=== PATIENT | female | born 2000 | race Caucasian/White ===

== ENCOUNTER 2022-09-09 19:13 | Emergency (ER) | payer OTHER, SELFPAY ==
[2022-09-09 19:22] VITALS: BP 138/97; PULSE 130; RESP 16; TEMP 37.2; O2SAT 98
[2022-09-09 19:27] VITALS: BP 138/97; PULSE 130; RESP 16; TEMP 37.2; O2SAT 98
--- NOTE | 2022-09-09 20:23 | ED.NAVMDI ---
HPI - Nausea/Vomiting/Diarrhea General Chief complaint: Nausea/Vomiting/Diarrhea Stated complaint: Vomiting Time Seen by Provider: 09/09/22 20:23 Source: patient and RN notes reviewed Mode of arrival: ambulatory Limitations: no limitations History of Present Illness HPI Narrative: [age] of presenting for complaint of vomiting last night. She states it occurred after taking multiple hits of weed. States she became lightheaded, attempted to sleep but was unable to due to being high. Endorses sinus pressure congestion, headache, and mild cough. She currently denies abdominal pain, nausea, vomiting or diarrhea. She has been able to tolerate solid food today. She is also requesting a work note. Related Data Home Medications Medication Instructions Recorded Confirmed No Home Medications 09/09/22 09/09/22 Allergies Allergy/AdvReac Type Severity Reaction Status Date / Time No Known Allergies Allergy Verified 09/09/22 19:27 Review of Systems Review of Systems: ROS per HPI Exam Narrative: GENERAL: well-appearing, EYES: PERRLA, conjunctivae clear ENT: Mucous membranes moist. TMs pearly mejia with dull light reflex bilaterally; no tragal tenderness. Oropharynx normal without lesions or exudate, no drooling, no hoarseness, no trismus, uvula midline. CHEST: Clear to auscultation, breath sounds equal. No wheezing, rhonchi, rales, or stridor. No respiratory distress, speaks in full sentences. HEART: Regular rate and rhythm. No murmur heard. ABD: soft, nontender SKIN: Warm, dry, no rash. NEURO: Alert and oriented x3. PSYCH:anxious Course Course Emergency Course: Patient is aware of diagnosis, understands and agrees to treatment plan. Anticipatory guidance given. Patient agrees to follow-up as directed and is aware of reasons to seek care at the emergency department. Portions of this record may have been created with voice recognition software Level of Care: Express Care Visit Vital Signs Vital signs: Vital Signs Temperature 98.9 F 09/09/22 19:22 Pulse Rate 130 H 09/09/22 19:22 Respiratory Rate 16 09/09/22 19:22 Blood Pressure 138/97 H 09/09/22 19:22 Pulse Oximetry 98 09/09/22 19:22 Oxygen Delivery Room Air 09/09/22 19:22 Temperature 98.9 F 09/09/22 19:27 Pulse Rate 130 H 09/09/22 19:27 Respiratory Rate 16 09/09/22 19:27 Blood Pressure 138/97 H 09/09/22 19:27 Pulse Oximetry 98 09/09/22 19:27 Oxygen Delivery Room Air 09/09/22 19:27 reviewed MDM - Nausea/Vomiting/Diarrhea MDM Narrative Medical decision making narrative: Advised supportive measures and signs/symptoms to go to the ER. Pt is appropriate for outpt treatment and f/u. Differential Diagnosis Differential diagnosis: Likely food poisoning, gastroenteritis and other (viral infection) Discharge Plan Discharge Clinical Impression: Viral infection Patient Disposition: Home, Self-Care Condition: Stable Instructions: Acute Nausea and Vomiting (ED) Additional Instructions: Stay hydrated. Take small sips of fluid containing electrolytes frequently. Clear liquids (broth, jello, tea, sprite, pedialyte) [place] foods (bananas, rice, applesauce, toast, crackers) Avoid fatty, greasy, fried or spicy food. Avoid triggers. You should go to the hospital if you experience persistent nausea and vomiting that does not resolve and does not allow you to tolerate any food or fluids, fevers, increasing abdominal pain, persistent diarrhea, dizziness, fainting, or for any other concerns. Prescriptions: No Action No Home Medications Follow-up/Referrals: PHYSICIAN,DIRECTOR OF [facility] [Primary Care Provider] - Stand Alone Forms: Work/School Release IP Time of Disposition: 20:30
== END 2022-09-09 20:34 | disposition home or self-care (01) ==
PROVIDERS: Emergency Provider Nurse Practitioner Family
DX: B34.9 Viral infection, unspecified (principal)
CPT/HCPCS: 99211; G0463

== ENCOUNTER 2023-03-06 12:04 | Emergency (ER) | payer OTHER, SELFPAY ==
[2023-03-06 12:12] VITALS: BP 145/85; PULSE 92; RESP 16; TEMP 37.1; O2SAT 99
--- NOTE | 2023-03-06 12:27 | ED.URI ---
HPI - URI/Sore Throat General Chief Complaint: Upper Respiratory Infection Stated Complaint: Sore Throat Source: patient and RN notes reviewed Limitations: no limitations History of Present Illness HPI Narrative: patient is a 22-year-old female who presents to the [facility] with complaints sore throat upon waking this morning. Patient states that she has also noticed an infrequent nonproductive cough starting around midnight. She denies congestion. Denies fevers. Denies chest pain or shortness of breath. Related Data Home Medications Medication Instructions Recorded Confirmed No Home Medications 09/09/22 09/09/22 Allergies Allergy/AdvReac Type Severity Reaction Status Date / Time No Known Allergies Allergy Verified 09/09/22 19:27 Review of Systems Review of Systems: CONSTITUTIONAL: Denies fever, chills, or sweats. EYES: Denies visual changes, redness, or discharge. ENT: Reports sore throat. CARDIOVASCULAR: Denies chest pain, palpitations, or edema. RESPIRATORY: Reports cough but denies dyspnea. GASTROINTESTINAL: Denies abdominal pain, nausea, vomiting, or diarrhea. GENITOURINARY: Denies dysuria or hematuria. SKIN: Denies rash or itching. MUSCULOSKELETAL: Denies back pain, joint pain, or myalgia. NEUROLOGIC: Denies headache, numbness, or weakness. Pertinent positives per HPI. PMFSH Comments At the time of my signature, I reviewed and agree with the nursing past medical, surgical, social, and family history. There is no relevant family history pertinent to the patient complaint. Exam Narrative: GENERAL: This is a well-nourished, well-developed patient, in no apparent distress. HEAD: normocephalic, atraumatic. EYES: Sclera clear/white. Vision is grossly intact. EARS: External ears normal, auditory canals clear and without drainage, TMs normal without perforation. Hearing grossly intact. NOSE: External nose normal with no obvious nasal discharge, nares without redness, no rhinorrhea. THROAT: Mucous membranes moist, oropharyngeal erythema without exudate. NECK: Neck supple, non-tender without lymphadenopathy, masses or thyromegaly. CARDIOVASCULAR: Regular rate and rhythm without murmurs, gallops, or rubs. RESPIRATORY: Clear to auscultation. Breath sounds equal bilaterally. No wheezes, rales, or rhonchi. GASTROINTESTINAL: Abdomen soft, non-tender, nondistended. Bowel sounds are active. No hepato-splenomegaly, or palpable masses. No guarding. SKIN: warm, intact with no suspicious lesions or rash, good texture and turgor. NEURO: awake, alert, and oriented to person, place and time. There were no obvious focal neurologic abnormalities. Course Course Level of Care: Express Care Visit Vital Signs Vital signs: Vital Signs Temperature 98.7 F 03/06/23 12:12 Pulse Rate 92 03/06/23 12:12 Respiratory Rate 16 03/06/23 12:12 Blood Pressure 145/85 H 03/06/23 12:12 Pulse Oximetry 99 03/06/23 12:12 Oxygen Delivery Room Air 03/06/23 12:12 Temperature 98.7 F 03/06/23 12:12 Pulse Rate 92 03/06/23 12:12 Respiratory Rate 16 03/06/23 12:12 Blood Pressure 145/85 H 03/06/23 12:12 Pulse Oximetry 99 03/06/23 12:12 Oxygen Delivery Room Air 03/06/23 12:12 reviewed MDM - URI/Sore Throat MDM Narrative Medical decision making narrative: Rapid strep is negative in the office; however we will send to the lab for confirmation; there is a small percentage chance that it can come back positive; if it is, we will call you in 2-3days; and your prescription will be call in to your pharmacy. However, there is NO indication for antibiotic at this time. -Increase your fluids and Vitamin C. -Oral rinses such as: Salt water gargles and/or may use topical anesthetic (eg. Chloraseptic spray) or lozenges to relieve dryness or throat pain. -Take tylenol and ibuprofen as needed for pain and fever as directed. -Frequent hand washing or hand supervisor pleating is one of the best ways to prevent spre
== END 2023-03-06 12:30 | disposition home or self-care (01) ==
PROVIDERS: Emergency Provider Nurse Practitioner
DX: J02.9 Acute pharyngitis, unspecified (principal)
CPT/HCPCS: 87081; 87880; 99213; G0463

== ENCOUNTER 2023-04-11 16:59 | Emergency (ER) | payer OTHER, SELFPAY ==
[2023-04-11 17:03] VITALS: BP 145/88; PULSE 86; RESP 18; TEMP 36.5; O2SAT 99
--- NOTE | 2023-04-11 17:56 | ED.GENADULT ---
HPI - General Adult General Chief complaint: Nausea/Vomiting/Diarrhea Stated complaint: Vomiting Source: patient Mode of arrival: ambulatory Limitations: no limitations History of Present Illness HPI narrative: Patient presents requesting a note to allow her to return to work tomorrow. She missed work today because she had an episode of vomiting. She denies any nausea at the present time. No fever, chills, abdominal pain, urinary symptoms, vaginal bleeding or discharge, constipation, diarrhea or other symptoms. She has a nexplanon. She is not aware of any new foods she consumed. She ate eggs prior to the time of symptom onset. Related Data Home Medications Medication Instructions Recorded Confirmed No Home Medications 09/09/22 09/09/22 Allergies Allergy/AdvReac Type Severity Reaction Status Date / Time No Known Allergies Allergy Verified 09/09/22 19:27 Review of Systems Review of Systems: CONSTITUTIONAL: Denies fever, chills, or sweats. EYES: Denies visual changes, redness, or discharge. ENT: Denies rhinorrhea, congestion, sore throat, or otalgia. CARDIOVASCULAR: Denies chest pain, palpitations, or edema. RESPIRATORY: Denies cough or dyspnea. GASTROINTESTINAL:Reports nausea earlier which has since resolved. Reports one episode of vomiting. Denies abdominal pain or diarrhea. GENITOURINARY: Denies dysuria or hematuria. SKIN: Denies rash or itching. MUSCULOSKELETAL: Denies back pain, joint pain, or myalgia. NEUROLOGIC: Denies headache, numbness, dizziness, or weakness. PSYCHIATRIC: Denies anxiety or depression. PMFSH Past Medical History Medical History No pertinent past medical history Surgical History Surgical History No pertinent past surgical history Family History Family History Father Family history non-contributory Social History Social History Living arrangements: with family Gender identity (if verbalized by the patient): Female Spiritual care concerns: No Exam Narrative: GENERAL: Well-appearing, well-nourished, and in no acute distress. HEAD: Normocephalic, atraumatic. EYES: PERRLA and EOMI. ENT: Nares clear, no rhinorrhea or epistaxis. Mucous membranes moist. Oropharynx without tonsillar hypertrophy exudate or other lesions. Bilateral TMs pearly mejia nonbulging NECK: Supple. No adenopathy or masses. No carotid bruits or JVD CHEST: Clear to auscultation. No respiratory distress. No wheezes rales or rhonchi HEART: Regular rate and rhythm. No murmur heard. Normal peripheral pulses. ABDOMEN: Soft, nontender, nondistended, normal active bowel sounds. EXTREMITIES: Normal range of motion. No edema. SKIN: Warm, dry, no rash. NEURO: No focal deficits. Alert and oriented x3. PSYCH: Normal mood and affect. Course Course Emergency Course: This is a 22-year-old female who presented with request for a work note to allow her return tomorrow. She had an episode of emesis earlier today but denies any nausea or any other symptoms at the present time. She should follow-up with her primary provider this coming week. Go to the ER for worsening symptoms. Patient in agreement with plan care Level of Care: Express Care Visit Vital Signs Vital signs: Vital Signs Temperature 36.5 C 04/11/23 17:03 Pulse Rate 86 04/11/23 17:03 Respiratory Rate 18 04/11/23 17:03 Blood Pressure 145/88 H 04/11/23 17:03 Pulse Oximetry 99 04/11/23 17:03 Oxygen Delivery Room Air 04/11/23 17:03 Temperature 36.5 C 04/11/23 17:03 Pulse Rate 86 04/11/23 17:03 Respiratory Rate 18 04/11/23 17:03 Blood Pressure 145/88 H 04/11/23 17:03 Pulse Oximetry 99 04/11/23 17:03 Oxygen Delivery Room Air 04/11/23 17:03 Afsaneh Fox
== END 2023-04-11 17:59 | disposition home or self-care (01) ==
PROVIDERS: Emergency Provider Nurse Practitioner
DX: Z02.79 Encounter for issue of other medical certificate (principal)
CPT/HCPCS: 99211; G0463

== ENCOUNTER 2023-05-28 16:53 | Emergency (ER) | payer OTHER, SELFPAY ==
[2023-05-28 16:57] VITALS: BP 122/78; PULSE 89; RESP 16; TEMP 36.4; O2SAT 98
--- NOTE | 2023-05-28 17:07 | ED.NAVMDI ---
HPI - Nausea/Vomiting/Diarrhea General Chief complaint: Nausea/Vomiting/Diarrhea Stated complaint: Dizziness/Nausea Source: patient and RN notes reviewed History of Present Illness HPI Narrative: 22 yo F presents to urgent care with omplaints of nausea yesterday. Pt states she had some diarrhea as well. Pt reports eating an edible on Thursday and she thinks this could be the culprit to her symptoms yesterday. Pt stats she feels better today but her [id number] told her she looked pale today and to be evaluated. Pt also stating she needs a note to return to work. Denies any vomiting, chest pain, SOB, or abdominal pain. Pt reports feeling lightheaded yesterday. Related Data Home Medications Medication Instructions Recorded Confirmed etonogestrel 68 mg subdermal 1 implant subdermal ONCE 05/28/23 05/28/23 implant (Nexplanon) Allergies Allergy/AdvReac Type Severity Reaction Status Date / Time No Known Allergies Allergy Verified 05/28/23 17:10 Review of Systems Review of Systems: Pertinent positives and pertinent negatives per HPI. [facility] Past Medical History Medical History (Updated 05/28/23 @ 17:14 by Vanessa Cutler, LITHOGRAPH [employer]ESS [employer]PERATOR [employer]) No pertinent past medical history Surgical History Surgical History No pertinent past surgical history Family History Family History Father Family history non-contributory Social History Social History Living arrangements: with family Gender identity (if verbalized by the patient): Female Spiritual care concerns: No Comments At the time of my signature, I reviewed and agree with the nursing past medical, surgical, social, and family history. There is no relevant family history pertinent to the patient complaint. Exam Narrative: GENERAL: This is a well-nourished, well-developed patient, in no apparent distress. HEAD: normocephalic, atraumatic. EYES: Sclera clear/white. Vision is grossly intact. EARS: External ears normal, auditory canals clear and without drainage. Hearing grossly intact. NOSE: External nose normal with no obvious nasal discharge, nares without redness, no rhinorrhea. CARDIOVASCULAR: Regular rate and rhythm without murmurs, gallops, or rubs. RESPIRATORY: No respiratory distress GASTROINTESTINAL: Abdomen soft, non-tender, nondistended. Bowel sounds are active. No hepato-splenomegaly, or palpable masses. No guarding. SKIN: warm, intact with no suspicious lesions or rash, good texture and turgor. NEURO: awake, alert, and oriented to person, place and time. There were no obvious focal neurologic abnormalities. Course Course Level of Care: Express Care Visit Vital Signs Vital signs: Vital Signs Temperature 97.6 F 05/28/23 16:57 Pulse Rate 89 05/28/23 16:57 Respiratory Rate 16 05/28/23 16:57 Blood Pressure 122/78 05/28/23 16:57 Pulse Oximetry 98 05/28/23 16:57 Oxygen Delivery Room Air 05/28/23 16:57 Temperature 97.6 F 05/28/23 17:10 Pulse Rate 89 05/28/23 17:10 Respiratory Rate 16 05/28/23 17:10 Blood Pressure 122/78 05/28/23 17:10 Pulse Oximetry 98 05/28/23 17:10 Oxygen Delivery Room Air 05/28/23 17:10 Reviewed MDM - Nausea/Vomiting/Diarrhea MDM Narrative Medical decision making narrative: If you would like to eat food, you should follow the BRAT diet (bananas, rice, applesauce, and toast, or things of the like). If you develop any new or worsening symptoms, you should go to the emergency dept without hesitation. Follow up with your religion instructor in 2-5 days. Differential Diagnosis Differential diagnosis: Likely gastroenteritis, dehydration and other (needs work note) Critical Care Time Critical Care Time Critical Care Time: No Discharge Plan Discharge Clinical Impression: Return to work evaluation
[2023-05-28 17:10] VITALS: BP 122/78; PULSE 89; RESP 16; TEMP 36.4; O2SAT 98
== END 2023-05-28 17:21 | disposition home or self-care (01) ==
PROVIDERS: Emergency Provider Nurse Practitioner Family
DX: Z02.79 Encounter for issue of other medical certificate (principal)
CPT/HCPCS: 99211; G0463

== ENCOUNTER 2023-06-18 12:52 | Emergency (ER) | payer OTHER, SELFPAY ==
[2023-06-18 13:00] VITALS: BP 138/92; PULSE 83; RESP 20; TEMP 36.9; O2SAT 99
--- NOTE | 2023-06-18 13:40 | ED.GENADULT ---
HPI - General Adult General Chief complaint: Unspecified Stated complaint: Pain chest/collarbone Time Seen by Provider: 06/18/23 13:41 Source: patient Mode of arrival: ambulatory Limitations: no limitations History of Present Illness HPI narrative: 22-year-old female presented for complaint of left clavicle pain for 2 days. She denies known injury. She states she took a pain reliever but it caused indigestion and did not provide significant relief in pain. Denies decreased ROM to upper extremities. Denies numbness, tingling or weakness of the arms, however she endorses sleeping with the arm over head and it will cause the arm to 'fall asleep sometimes.' endorses a history of left clavicle fracture x2 as a child. Related Data Home Medications Medication Instructions Recorded Confirmed etonogestrel 68 mg subdermal 1 implant subdermal ONCE 05/28/23 06/18/23 implant (Nexplanon) Allergies Allergy/AdvReac Type Severity Reaction Status Date / Time No Known Allergies Allergy Verified 06/18/23 13:14 Review of Systems Review of Systems: CONSTITUTIONAL: Denies body aches, fever, chills EYES: Denies visual changes ENT: Denies rhinorrhea, congestion CARDIOVASCULAR: Denies chest pain, palpitations, or edema. RESPIRATORY: Denies cough or dyspnea. GASTROINTESTINAL: Denies abdominal pain, nausea, vomiting, or diarrhea. SKIN: Denies rash, itching, or wounds. MUSCULOSKELETAL: reports left clavicle pain Denies back pain, joint pain, or myalgia. NEUROLOGIC: Denies headache, numbness, tingling, or weakness. PSYCH: Denies depression or anxiety. All systems reviewed & are unremarkable except as noted in HPI and below PMFSH Past Medical History Medical History No pertinent past medical history Surgical History Surgical History No pertinent past surgical history Family History Family History Father Family history non-contributory Social History Social History Living arrangements: with family Gender identity (if verbalized by the patient): Female Spiritual care concerns: No Comments At time of signature, I have reviewed and agree with nursing past medical, surgical, social and family history unless otherwise noted. Please see nursing chart for further information. There is no relevant family history pertinent to the presenting complaint Exam Narrative: GENERAL: Well-appearing, and in no acute distress. HEAD: Normocephalic, atraumatic. EYES: PERRLA, conjunctivae clear NECK: Supple. CHEST: Speaks in full sentences. No respiratory distress. HEART: Regular rate and rhythm. Normal and equal peripheral pulses. EXTREMITIES: Left mid clavicle tender to palpation. bilateral upper extremities have normal strength and sensation, normal range of motion but endorses mild clavicle pain with movement. No edema or ecchymosis, No open wounds,or obvious deformity; alignment normal, pulse palpable and equal bilaterally, skin warm, dry, pink. Capillary refill less than 3 seconds. SKIN: Warm, dry, no rash. NEURO: Alert and oriented x3. PSYCH: Normal mood and affect Course Course Emergency Course: Patient is aware of diagnosis, understands and agrees to treatment plan. Anticipatory guidance given. Patient agrees to follow-up as directed and is aware of reasons to seek care at the emergency department. Portions of this record may have been created with voice recognition software Level of Care: Express Care Visit Vital Signs Vital signs: Vital Signs Temperature 98.5 F 06/18/23 13:00 Pulse Rate 83 06/18/23 13:00 Respiratory Rate 20 06/18/23 13:00 Blood Pressure 138/92 H 06/18/23 13:00 Pulse Oximetry 99 06/18/23 13:00 Oxygen Delivery Room Air 06/18/23 13:00 [place]
== END 2023-06-18 13:55 | disposition home or self-care (01) ==
PROVIDERS: Emergency Provider Nurse Practitioner Family
DX: M25.512 Pain in left shoulder (principal)
CPT/HCPCS: 99212; G0463

== ENCOUNTER 2023-10-01 09:14 | Emergency (ER) | payer OTHER, SELFPAY ==
--- NOTE | 2023-10-01 09:16 | ED.SKABFB ---
HPI - Skin/Abscess/Foreign Bdy General Chief complaint: Skin/Abscess/Foreign Body Stated complaint: All over rash Time Seen by Provider: 10/01/23 09:16 Source: patient Mode of arrival: ambulatory Limitations: no limitations History of Present Illness HPI narrative: Patient is a 23-year-old female presents with rash all over body that started yesterday. Patient has been using Benadryl and cortisone cream with no relief. Has been taking cool showers. Denies any tongue or throat swelling. Denies any difficulty breathing. Related Data Home Medications Medication Instructions Recorded Confirmed etonogestrel 68 mg subdermal 1 implant subdermal ONCE 05/28/23 10/01/23 implant (Nexplanon) Allergies Allergy/AdvReac Type Severity Reaction Status Date / Time FLU SHOT Allergy Rash Uncoded 10/01/23 09:24 Review of Systems Review of Systems: All systems reviewed & are unremarkable except as noted in HPI and below Constitutional: Constitutional: Denies body ache(s), Denies chills, Denies fatigue, Denies fever(s), Denies headache(s), Denies malaise and Denies weakness Eyes: Eyes: Denies blurry vision, Denies irritation and Denies loss of vision ENT: Denies otalgia, Denies headache(s), Denies nasal discharge, Denies sinus pain and Denies sore throat Cardiovascular: Cardiovascular: Denies chest pain, Denies irregular heart rhythm and Denies dyspnea Respiratory: Respiratory: Denies dyspnea Gastrointestinal: Gastrointestinal: Denies abdominal pain, Denies melena, Denies hematochezia, Denies diarrhea, Denies nausea and Denies vomiting Musculoskeletal: Musculoskeletal: Denies back pain, Denies myalgias and Denies arthralgias Integumentary/Breasts: Skin/Breast: Reports pruritus and Reports rash Neurologic: Denies headache(s), Denies loss of vision and Denies weakness Psychiatric: Psychiatric: Reports no additional psychiatric complaints Endocrine: Endocrine: Denies fatigue PMFSH Past Medical History Medical History No pertinent past medical history Surgical History Surgical History No pertinent past surgical history Family History Family History Father Family history non-contributory Social History Social History Living arrangements: with family Gender identity (if verbalized by the patient): Female Spiritual care concerns: No Comments At time of signature, agree with nursing past medical, surgical, social and family history. There is no relevant family history pertinent to the presenting complaint. Exam Const: General: cooperative, healthy appearing, comfortable, no acute distress and well nourished Nutritional Appearance: well nourished Orientation/consciousness: patient oriented x3 Limitations: no limitations HENMT: Head: normal to inspection, normocephalic and atraumatic Ears: hearing grossly normal bilaterally and external ears normal Face/Nose/Sinus: Normal external nose present, normal facial exam and face symmetric Face and sinus: normal facial exam and face symmetric Mouth: Yes Normal oral and palatal mucosa present, Yes lip normal, Yes tongue normal, Yes oropharynx normal and Yes moist mucous membranes Teeth and gingiva: dentition normal Throat: abnormal tonsil bilateral erythema and hypertrophy 2+ and posterior oropharynx abnormal erythema Eyes: General: appearance normal, both eyes and all related structures Alignment and Position: alignment normal and position normal Periorbital: periorbital findings normal Eyelids: eyelids normal Pupils: Equal, round and reactive pupils present EOM: EOMs intact bilaterally Neck: Neck: normal visual inspection, full ROM and supple Chest: Chest palpation & inspection: normal inspection of the chest Resp: Effort & Inspection: no
[2023-10-01 09:19] VITALS: BP 139/84; PULSE 105; RESP 18; TEMP 36.9; O2SAT 100
== END 2023-10-01 09:57 | disposition home or self-care (01) ==
PROVIDERS: Emergency Provider Nurse Practitioner Family
DX: J02.0 Streptococcal pharyngitis (principal); T78.40XA Allergy, unspecified, initial encounter
CPT/HCPCS: 87880; 99213; G0463

== ENCOUNTER 2023-11-05 13:15 | Emergency (ER) | payer OTHER, SELFPAY ==
[2023-11-05 13:24] VITALS: BP 155/76; PULSE 83; RESP 22; TEMP 36.6; O2SAT 100
[2023-11-05] MEDS: ALBUTEROL SULFATE NEB 2.5 MG/3 ML INH INHALATION (13:43)
[2023-11-05] MEDS: methylPREDNISolone SOD SUCC 125 MG VIAL IM (13:43)
--- NOTE | 2023-11-05 13:45 | ED.SOB ---
HPI - SOB/Dyspnea General Chief Complaint: Upper Respiratory Infection Stated Complaint: Shortness of Breath/Left Flank Pain Source: patient Mode of arrival: ambulatory Limitations: no limitations History of Present Illness HPI Narrative: 23-year-old female presented for complaint of cough for about 1 month worsening shortness of breath and wheezing over the past week. She states she has been out of her rescue inhaler for several days. Endorses subjective fever and bilateral lower rib pain. Denies n/v/d. Related Data Home Medications Medication Instructions Recorded Confirmed etonogestrel 68 mg subdermal 1 implant subdermal ONCE 05/28/23 10/01/23 implant (Nexplanon) Allergies Allergy/AdvReac Type Severity Reaction Status Date / Time FLU SHOT Allergy Rash Uncoded 10/01/23 09:24 Review of Systems Review of Systems: CONSTITUTIONAL: Denies body aches, reports fever, sweats. EYES: Denies visual changes, redness, or discharge. ENT: Denies rhinorrhea, congestion, sore throat, or otalgia. CARDIOVASCULAR: Denies chest pain, palpitations, or edema. RESPIRATORY: Reports cough, sob, wheezing. GASTROINTESTINAL: Denies abdominal pain, nausea, vomiting, or diarrhea. SKIN: Denies rash, itching, or wounds. MUSCULOSKELETAL: Denies back pain, joint pain, or myalgia. NEUROLOGIC: Denies headache, numbness, tingling, or weakness. All systems reviewed & are unremarkable except as noted in HPI and below PMFSH Past Medical History Medical History No pertinent past medical history Surgical History Surgical History No pertinent past surgical history Family History Family History Father Family history non-contributory Social History Social History Living arrangements: with family Gender identity (if verbalized by the patient): Female Spiritual care concerns: No Comments At time of signature, I have reviewed and agree with nursing past medical, surgical, social and family history unless otherwise noted. Please see nursing chart for further information. There is no relevant family history pertinent to the presenting complaint Exam Narrative: GENERAL: Well-appearing, in no acute distress. EYES: EOMI. No redness or drainage. Conjunctivae normal. ENT: Mucous membranes pink and moist. No rhinorrhea. TMs normal bilaterally. Throat normal. Uvula midline. CHEST: No respiratory distress. Wheezing to all [place]. No cough. Speaks full sentences. HEART: Regular rate and rhythm. No murmur appreciated. ABDOMEN: Soft, nontender, nondistended, normal active bowel sounds. SKIN: Warm, dry, no rash. Capillary refill normal. Normal skin turgor. NEURO: Alert and oriented x3. Gait steady. PSYCH: Normal affect. Course Course Emergency Course: Patient is aware of diagnosis, understands and agrees to treatment plan. Anticipatory guidance given. Patient agrees to follow-up as directed and is aware of reasons to seek care at the emergency department. Portions of this record may have been created with voice recognition software Level of Care: Express Care Visit Vital Signs Vital signs: Vital Signs Temperature 98 F 11/05/23 13:24 Pulse Rate 83 11/05/23 13:24 Respiratory Rate 22 H 11/05/23 13:24 Blood Pressure 155/76 H 11/05/23 13:24 Pulse Oximetry 100 11/05/23 13:24 Oxygen Delivery Room Air 11/05/23 13:24 Temperature 98 F 11/05/23 13:24 Pulse Rate 83 11/05/23 13:24 Respiratory Rate 22 H 11/05/23 13:24 Blood Pressure 155/76 H 11/05/23 13:24 Pulse Oximetry 100 11/05/23 13:24 Oxygen Delivery Room Air 11/05/23 13:24 MDM - SOB/Dyspnea MDM Narrative Medical decision making narrative: O2 sat 100% RA. IM solumedrol given Reassessed after albuterol
== END 2023-11-05 14:15 | disposition home or self-care (01) ==
PROVIDERS: Emergency Provider Nurse Practitioner Family
DX: J40 Bronchitis, not specified as acute or chronic (principal)
CPT/HCPCS: 96372; 99213; G0463; J2930

== ENCOUNTER 2023-12-16 18:19 | Emergency (ER) | payer OTHER, SELFPAY ==
[2023-12-16 18:24] VITALS: BP 155/67; PULSE 102; RESP 20; TEMP 36.9; O2SAT 100
--- NOTE | 2023-12-16 18:48 | ED.EAR ---
HPI - Ear Problem General Chief complaint: Ear Stated complaint: ears Time Seen by Provider: 12/16/23 18:40 Source: patient, RN notes reviewed and old records reviewed Mode of arrival: ambulatory Limitations: no limitations History of Present Illness HPI Narrative: 23 year old female presents to [facility] accompanied by significant other with complaints of right ear pain since yesterday. Patient reports that her right ear is throabbing in pain, has not taken any OTC medication for her discomfort. MD Complaint: ear pain Location: right ear Duration: constant Severity: moderate Discharge from ear: Reports no Treatment prior to arrival: none Related Data Home Medications Medication Instructions Recorded Confirmed vits no.126-ferrous fum 1 tablet PO DAILY 12/16/23 12/16/23 28 mg iron-folic acid 800 mcg tablet (Classic ) Allergies Allergy/AdvReac Type Severity Reaction Status Date / Time Influenza Virus Vaccines Allergy Unknown Unknown Verified 12/16/23 18:36 Review of Systems Review of Systems: CONSTITUTIONAL: Denies malaise, chills, sweats, or fever. EYES: Denies visual changes, redness, or discharge. ENT: Reports rhinorrhea, congestion,no sinus pain, right otalgia and no sore throat. CARDIOVASCULAR: Denies chest pain, palpitations, or edema. RESPIRATORY: Reports cough.? Denies dyspnea. GASTROINTESTINAL: Denies abdominal pain, nausea, vomiting, diarrhea SKIN: Denies rash or itching. MUSCULOSKELETAL: Denies myalgia. NEUROLOGIC: Denies headache. All systems reviewed & are unremarkable except as noted in HPI and below PMFSH Past Medical History Medical History (Updated 12/18/23 @ 14:05 by Florinda Gabriel NP) Fracture, clavicle GERD (gastroesophageal reflux disease) Hypertension No pertinent past medical history Seasonal allergies Surgical History Surgical History No pertinent past surgical history Family History Family History Father Family history non-contributory Social History Social History Living arrangements: with family Gender identity (if verbalized by the patient): Female Spiritual care concerns: No Comments At time of signature, agree with nursing past medical, surgical, social and family history. There is no relevant family history pertinent to the presenting complaint Exam Narrative: GENERAL: Well-appearing, well-nourished, and in no acute distress. HEAD: Normocephalic EYES: PERRLA, conjunctivae clear ENT: Nares clear, turbinates edematous and erythematous, clear discharge. Mucous membranes moist.Right TM red and bulging, Left TM pearly mejia with dull light reflex; no tragal tenderness. Oropharynx erythematous without lesions. Tonsils not enlarged and without exudate, no drooling, no hoarseness, no trismus, uvula midline.some post nasal discharge NECK: Supple. No lymphadenopathy CHEST: Clear to auscultation, breath sounds equal. No wheezing, rhonchi, rales, or stridor. No respiratory distress, speaks in full sentences.SAO2 100% on room air HEART: Regular rate and rhythm. No murmur heard. SKIN: Warm, dry, no rash. NEURO: Alert and oriented x3. PSYCH: Normal mood and affect Course Course Emergency Course: Patient is aware of diagnosis, understands and agrees to treatment plan.? Anticipatory guidance given.? Patient agrees to follow-up as directed and is aware of reasons to seek care at the emergency department. Portions of this record may have been created with voice recognition software Level of Care: Express Care Visit Vital Signs Vital signs: Vital Signs Temperature 36.9 C 12/16/23 18:24 Pulse Rate 102 H 12/16/23 18:24 Respiratory Rate 20 12/16/23 18:24 Blood Pressure 155/67 H 12/16/23 18:24 Pulse Oximetry 100 12/16/23 18:2
== END 2023-12-16 19:06 | disposition home or self-care (01) ==
PROVIDERS: Emergency Provider Registered Nurse
DX: H66.91 Otitis media, unspecified, right ear (principal); K21.9 Gastro-esophageal reflux disease without esophagitis; I10 Essential (primary) hypertension
CPT/HCPCS: 99213; G0463